=== PATIENT | female | born 2000 | race Caucasian/White ===

== ENCOUNTER 2021-12-15 15:49 | Emergency (ER) | payer OTHER ==
[~2021-12-15] VITALS: Ht 160 cm; Wt 90.9 kg
[2021-12-15 16:36] VITALS: BP 123/68
[2021-12-15] MEDS ORDERED: BACI28OI28 TP (18:43)
== END 2021-12-15 18:54 | disposition home or self-care (01) ==
LOC: EMS 16:04
DX: T23.072A Burn of unspecified degree of left wrist, initial encounter (principal); X77.8XXA Intentional self-harm by other hot objects, initial encounter; Y93.89 Activity, other specified; Y92.89 Other specified places as the place of occurrence of the external cause; Y99.8 Other external cause status
CPT/HCPCS: 99282; Z7502